=== PATIENT | male | born 1950 | race African-American/Black ===

== ENCOUNTER 2019-09-19 13:10 | Inpatient (IN) | payer MEDICARE, OTHER ==
[~2019-09-19] VITALS: Ht 172.7 cm; Wt 73.9 kg
--- NOTE | 2019-09-19 13:49 | Emergency Room Report ---
History of Present Illness General Chief Complaint: Generalized Weakness Source: Patient, Medical Record Present Illness HPI 68-year-old male history of hypertension, CABG, dementia, presents with generalized weakness, failure to care of himself, reduced appetite, dehydration , no aggravating leaving factors severity is moderate, constant symptoms have been ongoing for the past month acutely worsening over the past week, patient feels more short of breath and weaker, no fevers no chills no chest pain no nausea no vomiting no abdominal pain no diarrhea patient presents for evaluation Allergies: Coded Allergies: No Known Allergies (Unverified , 09/19/19) Patient History Past Medical History: see triage record Reviewed Nursing Documentation: PMH: Agreed; PSxH: Agreed Nursing Documentation-PMH Hx Hypertension: Yes - PVD Hx COPD: Yes - PNEUMONIA Review of Systems All Other Systems: negative except mentioned in HPI Physical Exam Vital Signs Date Time Temp Pulse Resp B/P (MAP) Pulse Ox O2 Delivery O2 Flow Rate FiO2 09/19/19 13:24 98.1 81 16 137/83 (101) 98 Room Air Sp02 EP Interpretation: reviewed, normal General Appearance: well appearing, no apparent distress, alert Head: normocephalic, atraumatic Eyes: bilateral eye PERRL, bilateral eye EOMI ENT: uvula midline, dry mucus membranes Neck: supple, thyroid normal, supple/symm/no masses Respiratory: lungs clear, no respiratory distress, no retraction, no accessory muscle use Cardiovascular #1: normal peripheral pulses, regular rate, rhythm, no edema, no gallop, no murmur Gastrointestinal: non tender, soft, no guarding, no rebound Musculoskeletal: normal inspection Neurologic: alert, oriented x3 Psychiatric: mood/affect normal Skin: no rash, warm/dry Medical Decision Making Diagnostic Impression: Primary Impression: Failure to thrive in adult Additional Impression: Dehydration ER Course [age]-year-old male presents with failure to thrive, dehydration, will evaluate for possible sepsis UTI. Patient will require admission and evaluation and possible placement Patient found to have elevations on EKG, no stemi criteria, Dr. Cabrera consulted reviewed EKG recommended that he get an echo, no stemi criteria, most likely old underlying disease Patient admitted to Dr. Benjamin for dehydration and failure to thrive. Laboratory Tests Test 09/19/19 13:39 09/19/19 13:59 Lactic Acid Level 1.10 mmol/L (0.4-2.0) White Blood Count 4.1 K/UL (4.8-10.8) L Red Blood Count 4.45 M/UL (4.70-6.10) L Hemoglobin 13.2 G/DL (14.2-18.0) L Hematocrit 39.3 % (42.0-52.0) L Mean Corpuscular Volume 88 FL (80-99) Mean Corpuscular Hemoglobin 29.6 PG (27.0-31.0) Mean Corpuscular Hemoglobin Concent 33.5 G/DL (32.0-36.0) Red Cell Distribution Width 11.8 % (11.6-14.8) Platelet Count 120 K/UL (150-450) L Mean Platelet Volume 9.9 FL (6.5-10.1) Neutrophils (%) (Auto) 54.4 % (45.0-75.0) Lymphocytes (%) (Auto) 32.4 % (20.0-45.0) Monocytes (%) (Auto) 12.2 % (1.0-10.0) H Eosinophils (%) (Auto) 0.3 % (0.0-3.0) Basophils (%) (Auto) 0.7 % (0.0-2.0) Prothrombin Time 10.9 SEC (9.30-11.50) Prothrombin Time INR 1.0 (0.9-1.1) PTT 27 SEC (23-33) Sodium Level 144 MMOL/L (136-145) Potassium Level 3.8 MMOL/L (3.5-5.1) Chloride Level 110 MMOL/L (98-107) H Carbon Dioxide Level 30 MMOL/L (21-32) Anion Gap 4 mmol/L (5-15) L Blood Urea Nitrogen 9 mg/dL (7-18) Creatinine 1.0 MG/DL (0.55-1.30) Estimate Glomerular Filtration Rate > 60 mL/min (>60) Glucose Level 99 MG/DL (74-106) Calcium Level 8.7 MG/DL (8.5-10.1) Phosphorus Level 3.1 MG/DL (2.5-4.9) Magnesium Level 1.9 MG/DL (1.8-2.4) Total Bilirubin 0.3 MG/DL (0.2-1.0) Aspartate Amino Transferase (AST) 19 U/L (15-37) Alanine Aminotransferase (ALT) 22 U/L (12-78) Alkaline Phosphatase 37 U/L (46-116) L Total Creatine Kinase 489 U/L (26-308) H Creatine Kinase MB 8.4 NG/ML (0.0-3.6) H Creatine Kinase MB Relative Index 1.7 Troponin I 0.018 ng/mL (0.000-0.056) Pro-B-Type Natriuretic Peptide 443 pg/mL (0-125) H Total Protein 6.6 G/DL (6.4-8.2) Albumin 3.3 G/DL (3.4-5.0) L Globulin 3.3 g/dL Albumin/Globulin Ratio 1.0 (1.0-2.7) Lipase 56 U/L (73-393) L EKG Diagnostic Results EKG Time: 14:44 EP Interpretation: NSR rate 62, qtc 466, elevated v2 v3, no stemi criteria, Left axis dev Rhythm Strip Diag. Results Rhythm Strip Time: 13:48 EP Interpretation: yes Rate: 79 Rhythm: NSR, no PVC's, no ectopy Chest X-Ray Diagnostic Results Chest X-Ray Diagnostic Results : Chest X-Ray Ordered: Yes # of Views/Limited/Complete: 1 View Indication: Shortness of Breath EP Interpretation: Yes Interpretation: no consolidation, no effusion, no pneumothorax, no acute cardiopulmonary disease Impression: No acute disease Electronically Signed by: Harshad Contreras MD Last Vital Signs Date Time Temp Pulse Resp B/P (MAP) Pulse Ox O2 Delivery O2 Flow Rate FiO2 09/19/19 13:24 98.1 81 16 137/83 (101) 98 Room Air Disposition: ADMITTED INPATIENT Condition: Stable Harshad Contreras MD Sep 19, 2019 13:49
--- NOTE | 2019-09-19 14:16 | Diagnostic Imaging Report ---
Indication: Shortness of breath Technique: One view of the chest Comparison: none Findings: Lungs and pleural spaces are clear. There are median sternotomy sutures. The heart size is normal. There is mild elevation of the left hemidiaphragm Impression: No acute process
[2019-09-19 14:23] VITALS: BP 127/78
[2019-09-19] MEDS ORDERED: ASPIR 8181 MG ORAL (14:39)
[2019-09-19] MEDS ORDERED: OLANZAPINE20 MG ORAL (14:39)
[2019-09-19] MEDS ORDERED: TEMAZEPAM30 MG ORAL (14:39)
[2019-09-19] MEDS ORDERED: FLURAZEPAM HCL30 MG ORAL (14:39)
[2019-09-19] MEDS ORDERED: RISPERDAL3 MG PO (14:39)
[2019-09-19] MEDS ORDERED: CLOTRIMAZOLE15 GM TOPIC (14:39)
[2019-09-19] MEDS ORDERED: VITAMIN D22000 UNIT PO (14:39)
[2019-09-19] MEDS ORDERED: DIVALPROEX SOD500 MG PO (14:39)
[2019-09-19] MEDS ORDERED: CLOPIDOGREL75 MG ORAL (14:39)
[2019-09-19] MEDS ORDERED: BENZTROPINE ME0.5 MG PO (14:39)
[2019-09-19 14:49] LABS: BASOPHILS % (AUTO) 0.7 % (0.0-2.0); EOSINOPHILS % (AUTO) 0.3 % (0.0-3.0); HEMATOCRIT 39.3 % (42.0-52.0); HEMOGLOBIN 13.2 G/DL (14.2-18.0); LYMPHOCYTES % (AUTO) 32.4 % (20.0-45.0); MEAN CORPUSCULAR VOLUME 88 FL (80-99); MONOCYTES % (AUTO) 12.2 % (1.0-10.0); NEUTROPHILS % (AUTO) 54.4 % (45.0-75.0); PLATELET COUNT 120 K/UL (150-450); RED BLOOD COUNT 4.45 M/UL (4.70-6.10); RED CELL DISTRIBUTION WIDTH 11.8 % (11.6-14.8); WHITE BLOOD COUNT 4.1 K/UL (4.8-10.8)
[2019-09-19 15:03] LABS: ANION GAP 4 mmol/L (5-15); BLOOD UREA NITROGEN 9 mg/dL (7-18); CALCIUM 8.7 MG/DL (8.5-10.1); CARBON DIOXIDE 30 MMOL/L (21-32); CHLORIDE 110 MMOL/L (98-107); POTASSIUM 3.8 MMOL/L (3.5-5.1); SODIUM 144 MMOL/L (136-145)
[2019-09-19] MEDS ORDERED: NITROSTAT0.3 MG SL (15:06)
[2019-09-19] MEDS ORDERED: ECONAZOLE NITRA15 GM TOP (15:06)
[2019-09-19] MEDS ORDERED: TACTINAL500 M1 PO (15:06)
[2019-09-19] MEDS ORDERED: NIZORAL 2% C1 APPLIC TOPIC (15:06)
[2019-09-19 15:22] LABS: ALANINE AMINOTRANSFERASE 22 U/L (12-78); ALBUMIN 3.3 G/DL (3.4-5.0); ALKALINE PHOSPHATASE 37 U/L (46-116); ASPARTATE AMINO TRANSFERASE 19 U/L (15-37); BILIRUBIN,TOTAL 0.3 MG/DL (0.2-1.0); CKMB 8.4 NG/ML (0.0-3.6); CREATINE KINASE 489 U/L (26-308); PHOSPHORUS 3.1 MG/DL (2.5-4.9)
[2019-09-19 15:30] VITALS: BP 89/65
[2019-09-19 16:30] VITALS: BP 109/58
--- NOTE | 2019-09-19 16:52 | Cardiac Electrophysiology PN ---
Subjective Subjective [id number] Objective Last 24 Hour Vital Signs Date Time Temp Pulse Resp B/P (MAP) Pulse Ox O2 Delivery O2 Flow Rate FiO2 09/19/19 14:24 72 22 Room Air 09/19/19 14:23 97.9 72 22 127/78 98 Room Air 09/19/19 13:24 98.1 81 16 137/83 (101) 98 Room Air Laboratory Tests Test 09/19/19 13:39 09/19/19 13:59 Lactic Acid Level 1.10 mmol/L (0.4-2.0) White Blood Count 4.1 K/UL (4.8-10.8) L Red Blood Count 4.45 M/UL (4.70-6.10) L Hemoglobin 13.2 G/DL (14.2-18.0) L Hematocrit 39.3 % (42.0-52.0) L Mean Corpuscular Volume 88 FL (80-99) Mean Corpuscular Hemoglobin 29.6 PG (27.0-31.0) Mean Corpuscular Hemoglobin Concent 33.5 G/DL (32.0-36.0) Red Cell Distribution Width 11.8 % (11.6-14.8) Platelet Count 120 K/UL (150-450) L Mean Platelet Volume 9.9 FL (6.5-10.1) Neutrophils (%) (Auto) 54.4 % (45.0-75.0) Lymphocytes (%) (Auto) 32.4 % (20.0-45.0) Monocytes (%) (Auto) 12.2 % (1.0-10.0) H Eosinophils (%) (Auto) 0.3 % (0.0-3.0) Basophils (%) (Auto) 0.7 % (0.0-2.0) Prothrombin Time 10.9 SEC (9.30-11.50) Prothromb Time International Ratio 1.0 (0.9-1.1) Activated Partial Thromboplast Time 27 SEC (23-33) Sodium Level 144 MMOL/L (136-145) Potassium Level 3.8 MMOL/L (3.5-5.1) Chloride Level 110 MMOL/L (98-107) H Carbon Dioxide Level 30 MMOL/L (21-32) Anion Gap 4 mmol/L (5-15) L Blood Urea Nitrogen 9 mg/dL (7-18) Creatinine 1.0 MG/DL (0.55-1.30) Estimat Glomerular Filtration Rate > 60 mL/min (>60) Glucose Level 99 MG/DL (74-106) Calcium Level 8.7 MG/DL (8.5-10.1) Phosphorus Level 3.1 MG/DL (2.5-4.9) Magnesium Level 1.9 MG/DL (1.8-2.4) Total Bilirubin 0.3 MG/DL (0.2-1.0) Aspartate Amino Transf (AST/SGOT) 19 U/L (15-37) Alanine Aminotransferase (ALT/SGPT) 22 U/L (12-78) Alkaline Phosphatase 37 U/L (46-116) L Total Creatine Kinase 489 U/L (26-308) H Creatine Kinase MB 8.4 NG/ML (0.0-3.6) H Creatine Kinase MB Relative Index 1.7 Troponin I 0.018 ng/mL (0.000-0.056) Pro-B-Type Natriuretic Peptide 443 pg/mL (0-125) H Total Protein 6.6 G/DL (6.4-8.2) Albumin 3.3 G/DL (3.4-5.0) L Globulin 3.3 g/dL Albumin/Globulin Ratio 1.0 (1.0-2.7) Lipase 56 U/L (73-393) L Jacques Cabrera MD Sep 19, 2019 16:52
[2019-09-19 17:30] VITALS: BP 150/76
--- NOTE | 2019-09-19 18:34 | NUR ---
NURSE NOTES: Pre admit patient to TELE, Rm 207-2 from ER. Received report from Gary HASSAN. Patient is A/O X4, able to make needs known, denies any pain at this time, breathing is even and unlabored, on room air. Vital signs taken t 98.2, BP 133/66, HR 70, RR 16, oxygen sat 100% on RA. Skin is intact and warm on touch. compliance monitor in place. IV on LH 20g is intact and patent. Will continue to monitor patient.
--- NOTE | 2019-09-19 19:44 | NUR ---
HAND-OFF: Report given to SONYA Butcher. Patient is in stable condition.
--- NOTE | 2019-09-19 19:50 | NUR ---
NURSE NOTES: Received report from Negar Mansfield RN. Patient in bed AAO X3-4 with no complaints of acute pain or discomfort at this time. Kept clean, dry, and comfortable in bed. Ambulates with minimal assistance to the bathroom. IV line intact and patent SL and placed on continuous cardiac monitoring per protocol. Safety precaution in place; siderails X2 up, call light within reach, bed in lowest position, brakes and alarm on at all times. Needs and wants anticipated and attended. Will continue plan of care and monitor for any changes noted.
[2019-09-19 20:00] VITALS: BP 111/61
[2019-09-19] MEDS: Metoprolol 25mg tab ORAL SCH (21:00)
[2019-09-19] MEDS: Atorvastatin 20mg tab ORAL SCH (21:07)
[2019-09-19] MEDS ORDERED: Nitroglycerin Subl 0.4mg tab SL PRN (22:00)
--- NOTE | 2019-09-19 23:15 | Consultation ---
DATE OF CONSULTATION: 09/19/2019 CARDIOLOGY CONSULTATION CONSULTING PHYSICIAN: Jacques Cabrera M.D. REFERRING PHYSICIAN: . REASON FOR CONSULTATION: Questionable ST-elevation myocardial infarction. HISTORY OF PRESENT ILLNESS: The patient is a 68-year-old gentleman with history of hypertension and coronary artery bypass graft as well as dementia, was brought to the emergency for generalized weakness and decreased appetite and dehydration. The patient did not have syncope and denies any chest pain or shortness of breath. In the emergency room, the patient's EKG was read by the computer and has ST elevation myocardial infarction and had some ST elevation in lead V1 through V3. Cardiology consultation was obtained for further evaluation and management. At the time of my evaluation, the patient is still in the emergency room. Denies any chest pain or palpitation or shortness of breath. The patient stated he does not have a regular cotton factor. REVIEW OF SYSTEMS: Review of systems was negative other than what is mentioned in history of present illness. PAST MEDICAL HISTORY: As mentioned above. FAMILY HISTORY: Noncontributory. SOCIAL HISTORY: He lives at retirement. Does not smoke or drink alcohol. PHYSICAL EXAMINATION: VITAL SIGNS: Show blood pressure of 127/78, pulse 72, respirations 18, and temperature is 98. HEAD AND NECK: Showed no JVD. LUNGS: Clear. CARDIOVASCULAR: Shows regular S1 and S2 with no gallop or murmur. ABDOMEN: Soft and nontender. Sternotomy scar is intact. EXTREMITIES: No pitting edema. LABORATORY AND DIAGNOSTIC DATA: His labs show white count of 4, hemoglobin of 13.2, hematocrit of 39, and platelet count of 120,000. Sodium 144, potassium 3.8, BUN of 9, creatinine of 1, and glucose of 99. Troponin is negative. CK is 489. ASSESSMENT/PLAN: 1. Coronary artery disease with history of coronary artery bypass graft. Even though the EKG is read as ST elevation, the patient is completely asymptomatic from cardiac standpoint. Troponin is negative. This could be old. I do not have any prior EKG to compare with. We will repeat the EKG and repeat the cardiac enzymes and get an echocardiogram for further evaluation. In the meantime, we will keep the patient on his cardiac medications, which includes aspirin and Plavix and add metoprolol and Lipitor to his medical regimen. 2. Hypertension. Again, add metoprolol to his medical regimen. 3. Psychiatric. The patient is on Risperdal and Cogentin. Thank you very much for allowing me to participate in the care of this patient. Please do not hesitate to contact me for any questions regarding my evaluation. Jacques Cabrera M.D. DR: DWAYNE JOB#: [id number] CC:
[2019-09-20] VITALS: BP 115/63
--- NOTE | 2019-09-20 03:00 | NUR ---
NURSE NOTES: Patient in bed asleep with no S/S of distress at this time. Will continue plan of care.
[2019-09-20 03:06] LABS: EOSINOPHILS % (AUTO) 0.6 % (0.0-3.0); HEMATOCRIT 35.4 % (42.0-52.0); HEMOGLOBIN 12.2 G/DL (14.2-18.0); LYMPHOCYTES % (AUTO) 45.4 % (20.0-45.0); MEAN CORPUSCULAR VOLUME 88 FL (80-99); MONOCYTES % (AUTO) 10.1 % (1.0-10.0); PLATELET COUNT 111 K/UL (150-450); RED BLOOD COUNT 4.03 M/UL (4.70-6.10); RED CELL DISTRIBUTION WIDTH 11.9 % (11.6-14.8); WHITE BLOOD COUNT 4.1 K/UL (4.8-10.8)
[2019-09-20 03:15] LABS: ANION GAP 3 mmol/L (5-15); BLOOD UREA NITROGEN 10 mg/dL (7-18); CARBON DIOXIDE 28 MMOL/L (21-32); CHLORIDE 113 MMOL/L (98-107); CREATININE 1.1 MG/DL (0.55-1.30); POTASSIUM 4.1 MMOL/L (3.5-5.1); SODIUM 144 MMOL/L (136-145)
[2019-09-20 03:58] LABS: CHOLESTEROL 110 MG/DL (< 200); HDL CHOLESTEROL 38 MG/DL (40-60); TRIGLYCERIDES 87 MG/DL (30-150)
[2019-09-20 04:00] VITALS: BP 120/64
--- NOTE | 2019-09-20 07:42 | NUR ---
HAND-OFF: Report given to Sophie Burgos RN. Patient in stable condition. Endorsed plan of care.
--- NOTE | 2019-09-20 07:43 | NUR ---
NURSE NOTES: Report received from SONYA Butcher. Patient shows no signs of distress, A+Ox3/4, denies pain/SOB. Respirations are even and unlabored on room air. IV site is intact and saline locked. Bed is at lowest position, brakes engaged, siderails x3, bed alarm on, and call light within reach. Pt is in stable condition at this time; will continue to monitor.
[2019-09-20 08:00] VITALS: BP 109/56
[2019-09-20] MEDS: Metoprolol 25mg tab ORAL SCH (08:35)
[2019-09-20] MEDS: Benztropine 1mg tab ORAL SCH ×2 (08:43→17:32)
[2019-09-20] MEDS: Acetaminophen 500mg (ES) tab ORAL SCH ×2 (08:44→17:31)
[2019-09-20] MEDS: Aspirin EC 81mg tab ORAL SCH (08:45)
[2019-09-20] MEDS: Depakote 500mg tab ORAL SCH ×2 (08:45→17:32)
[2019-09-20] MEDS ORDERED: Vitamin D 50,000 units cap ORAL SCH (09:00)
--- NOTE | 2019-09-20 10:03 | Cardiac Electrophysiology PN ---
Assessment/Plan Assessment/Plan 1. Coronary artery disease with history of coronary artery bypass graft. Even though the EKG is read as ST elevation, the patient is completely asymptomatic from cardiac standpoint. Troponin is negative. Repeat EKG unchanged. Echocardiogram pending. On Aspirin, Plavix, metoprolol and Lipitor 2. Hypertension. On metoprolol t 3. Psychiatric. On Risperdal and Cogentin. JA RN Subjective Subjective No CP or SOB. Baljinder down to 53 at night. Objective Last 24 Hour Vital Signs Date Time Temp Pulse Resp B/P (MAP) Pulse Ox O2 Delivery O2 Flow Rate FiO2 09/20/19 08:35 54 109/56 09/20/19 08:00 97.7 54 20 109/56 (73) 96 09/20/19 04:00 44 09/20/19 04:00 97.2 63 18 120/64 (82) 96 09/20/19 00:00 97.0 61 18 115/63 (80) 97 09/20/19 00:00 64 09/19/19 21:00 59 109/61 09/19/19 20:00 96.9 59 18 111/61 (78) 96 09/19/19 20:00 63 09/19/19 19:37 Room Air 09/19/19 17:50 97.9 70 19 150/76 99 Room Air 09/19/19 17:30 70 19 150/76 99 Room Air 09/19/19 16:30 68 18 109/58 100 Room Air 09/19/19 15:30 65 19 89/65 99 Room Air 09/19/19 14:24 72 22 Room Air 09/19/19 14:23 97.9 72 22 127/78 98 Room Air 09/19/19 13:24 98.1 81 16 137/83 (101) 98 Room Air Intake and Output 09/19/19 09/20/19 19:00 07:00 Intake Total 200 ml 120 ml Output Total 0 ml Balance 200 ml 120 ml Intake Oral 200 ml 120 ml Output Urine Total 0 ml # Voids 2 Laboratory Tests Test 09/19/19 13:39 09/19/19 13:59 09/19/19 18:35 09/20/19 02:56 Lactic Acid Level 1.10 mmol/L (0.4-2.0) White Blood Count 4.1 K/UL (4.8-10.8) L 4.1 K/UL (4.8-10.8) L Red Blood Count 4.45 M/UL (4.70-6.10) L 4.03 M/UL (4.70-6.10) L Hemoglobin 13.2 G/DL (14.2-18.0) L 12.2 G/DL (14.2-18.0) L Hematocrit 39.3 % (42.0-52.0) L 35.4 % (42.0-52.0) L Mean Corpuscular Volume 88 FL (80-99) 88 FL (80-99) Mean Corpuscular Hemoglobin 29.6 PG (27.0-31.0) 30.2 PG (27.0-31.0) Mean Corpuscular Hemoglobin Concent 33.5 G/DL (32.0-36.0) 34.4 G/DL (32.0-36.0) Red Cell Distribution Width 11.8 % (11.6-14.8) 11.9 % (11.6-14.8) Platelet Count 120 K/UL (150-450) L 111 K/UL (150-450) L Mean Platelet Volume 9.9 FL (6.5-10.1) 8.7 FL (6.5-10.1) Neutrophils (%) (Auto) 54.4 % (45.0-75.0) 43.0 % (45.0-75.0) L Lymphocytes (%) (Auto) 32.4 % (20.0-45.0) 45.4 % (20.0-45.0) H Monocytes (%) (Auto) 12.2 % (1.0-10.0) H 10.1 % (1.0-10.0) H Eosinophils (%) (Auto) 0.3 % (0.0-3.0) 0.6 % (0.0-3.0) Basophils (%) (Auto) 0.7 % (0.0-2.0) 1.0 % (0.0-2.0) Prothrombin Time 10.9 SEC (9.30-11.50) Prothromb Time International Ratio 1.0 (0.9-1.1) Activated Partial Thromboplast Time 27 SEC (23-33) Sodium Level 144 MMOL/L (136-145) 144 MMOL/L (136-145) Potassium Level 3.8 MMOL/L (3.5-5.1) 4.1 MMOL/L (3.5-5.1) Chloride Level 110 MMOL/L (98-107) H 113 MMOL/L (98-107) H Carbon Dioxide Level 30 MMOL/L (21-32) 28 MMOL/L (21-32) Anion Gap 4 mmol/L (5-15) L 3 mmol/L (5-15) L Blood Urea Nitrogen 9 mg/dL (7-18) 10 mg/dL (7-18) Creatinine 1.0 MG/DL (0.55-1.30) 1.1 MG/DL (0.55-1.30) Estimat Glomerular Filtration Rate > 60 mL/min (>60) > 60 mL/min (>60) Glucose Level 99 MG/DL (74-106) 95 MG/DL (74-106) Calcium Level 8.7 MG/DL (8.5-10.1) 8.0 MG/DL (8.5-10.1) L Phosphorus Level 3.1 MG/DL (2.5-4.9) Magnesium Level 1.9 MG/DL (1.8-2.4) Total Bilirubin 0.3 MG/DL (0.2-1.0) Aspartate Amino Transf (AST/SGOT) 19 U/L (15-37) Alanine Aminotransferase (ALT/SGPT) 22 U/L (12-78) Alkaline Phosphatase 37 U/L (46-116) L Total Creatine Kinase 489 U/L (26-308) H Creatine Kinase MB 8.4 NG/ML (0.0-3.6) H Creatine Kinase MB Relative Index 1.7 Troponin I 0.018 ng/mL (0.000-0.056) 0.035 ng/mL (0.000-0.056) 0.047 ng/mL (0.000-0.056) Pro-B-Type Natriuretic Peptide 443 pg/mL (0-125) H 761 pg/mL (0-125) H Total Protein 6.6 G/DL (6.4-8.2) Albumin 3.3 G/DL (3.4-5.0) L Globulin 3.3 g/dL Albumin/Globulin Ratio 1.0 (1.0-2.7) Lipase 56 U/L (73-393) L Triglycerides Level 87 MG/DL (30-150) Cholesterol Level 110 MG/DL (< 200) LDL Cholesterol 54 mg/dL (<100) HDL Cholesterol 38 MG/DL (40-60) L Cholesterol/HDL Ratio 2.9 (3.3-4.4) L Objective HEAD AND NECK: No JVD. LUNGS: Clear. CARDIOVASCULAR: Regular S1 and S2 with no gallop or murmur. ABDOMEN: Soft and nontender. Sternotomy scar is intact. EXTREMITIES: No pitting edema. Jacques Cabrera MD Sep 20, 2019 10:03
--- NOTE | 2019-09-20 10:06 | NUR ---
RD ASSESSMENT & RECOMMENDATIONS SEE CARE ACTIVITY FOR COMPLETE ASSESSMENT DAILY ESTIMATED NEEDS: Needs based on Cardiac 75kg 25-30 kcals/kg 0122-4270 total kcals 1-1.2 g protein/kg 75-90 g total protein 25-30 mL/kg 2208-5788 total fluid mLs NUTRITION DIAGNOSIS: Decrease sodium needs r/t cardiac history as evidenced by h/o HTN, CAD, currently w/ elev BNP (761). CURRENT DIET: Cardiac PO DIET RECOMMENDATIONS: LOW NA diet / soft easy chew ADDITIONAL RECOMMENDATIONS: 1) Obtain a standing weight 2) Adm w/ FTT-> monitor for continued good po intake 3) Snacks in b/w meals 4) Lipid panel
[2019-09-20 12:00] VITALS: BP 109/54
--- NOTE | 2019-09-20 15:00 | History and Physical Report ---
DATE OF ADMISSION: 09/19/2019 REASON FOR ADMISSION: Abnormal EKG, possible non-STEMI DE. HISTORY OF PRESENT ILLNESS: This is a 68-year-old male, presents with hypertension, failure to thrive, coronary artery bypass in the past with worsening dementia and generalized weakness. The patient apparently did not have any syncopal episode, but presented to the emergency room with an abnormal EKG. Cardiology on-call was called due to T-wave inversion. The patient is chest pain-free at this time, no shortness of breath. The patient is admitted for further care and management and further evaluation. The patient's findings reviewed and discussed. The patient's medications as well resumed. The patient has baseline dementia and is a fairly poor historian. The patient is on blood thinners including aspirin and Plavix, and does have dementia with psychosis. PAST MEDICAL HISTORY: As above. MEDICATIONS: Reviewed and reconciled. ALLERGIES: Reviewed and reconciled. SOCIAL HISTORY: The patient is at home, but it is unable to care for himself. Does not smoke or drink at this time. REVIEW OF SYSTEMS: Difficult to obtain due to the patient's present state. PHYSICAL EXAMINATION: GENERAL: A well-developed male, comfortable at present. VITAL SIGNS: Blood pressure 120/64, pulse 63, temperature 97.2, respirations 18, and sats 96%. HEENT: Negative. Extraocular movements are grossly intact. NECK: Supple. LUNGS: Moderate breath sounds. No rhonchi or wheezes. CARDIAC: S1, S2 noted. Bradycardia without murmurs, rubs, or gallops. ABDOMEN: Soft, nontender, nondistended. EXTREMITIES: No cyanosis, clubbing, or edema. NEUROLOGIC: Grossly nonfocal. LABORATORY DATA: Reviewed. White cell count 4.1, hematocrit 35, platelets of 111,000. Chemistry noted and reviewed, fairly negative. Troponins are all negative. BNP 76.1. IMPRESSION: 1. Abnormal EKG. 2. Coronary artery disease. 3. Coronary artery bypass. 4. Dementia with psychosis. 5. Protein-calorie malnutrition. RECOMMENDATIONS: 1. Supportive care. 2. Cardiology follow up and recommendations. 3. Monitor on telemetry. 4. Follow up troponins. 5. Follow up EKG and echocardiogram. 6. Stabilize and obtain PT evaluation and plan to discharge to the alf facility for rehabilitation . Eleno Benjamin M.D. DR: MANAS JOB#: [id number] CC:
[2019-09-20 16:00] VITALS: BP 118/60
--- NOTE | 2019-09-20 19:39 | NUR ---
HAND-OFF: Report given to SONYA Butcher. Pt is in stable condition; plan of care endorsed.
--- NOTE | 2019-09-20 19:45 | NUR ---
NURSE NOTES: Mitch Cabrera MD. regarding patient's episode of 5 beats of Vtach at 1700. Patient asymptomatic with no complaints of discomfort or pain. NNO at this time, will continue to monitor.
[2019-09-20 20:00] VITALS: BP 120/61
[2019-09-20] MEDS: Metoprolol Succinate XL 25mg tab ORAL SCH (20:19)
[2019-09-20] MEDS: Atorvastatin 20mg tab ORAL SCH (20:23)
[2019-09-20] MEDS ORDERED: ZyPREXA Zydis 10mg tab ORAL SCH (21:00)
[2019-09-20] MEDS ORDERED: Metoprolol 25mg tab ORAL SCH (21:00)
[2019-09-21] VITALS (7 sets, daily range): BP systolic 103–146; BP diastolic 54–67
--- NOTE | 2019-09-21 04:01 | Consultation ---
DATE OF CONSULTATION: 09/20/2019 CONSULTING PHYSICIAN: Adrien Velázquez M.D. HISTORY OF PRESENT ILLNESS: This is a 68-year-old male with a history of schizophrenia, coronary artery disease, failure to thrive, and hypertension, who has been admitted to the hospital due to abnormal EKG and altered mental status. During evaluation, the patient was unable to remember his medication and he was a poor historian. He knew the date as well as he is knowing he has been in the hospital. However, he has poor memory and is unable to provide any meaningful information. PAST PSYCHIATRIC HISTORY: Significant for schizophrenia. MEDICATIONS: He is on Zyprexa as well as risperidone and temazepam. PAST MEDICAL HISTORY: Significant for coronary artery disease and hypertension. ALLERGIES: No known drug allergies. SUBSTANCE ABUSE HISTORY: No known history of illicit drug use or alcohol. No toxicology was done in the ER. MENTAL STATUS EXAMINATION: The patient is alert and oriented times self, place, and situation. Mood is neutral. Affect was flat. Thought process, concrete. Thought content, no suicidal or homicidal ideations. He denied any auditory or visual hallucination. No delusions. Memory is impaired. Insight and judgment are impaired. ASSESSMENT: AXIS I: Schizophrenia. Dementia. AXIS II: Deferred. AXIS III: Coronary artery disease. Hypertension. AXIS IV: Low. AXIS V: 50. PLAN: 1. We will discontinue the Zyprexa. 2. Continue the risperidone. 3. Decrease the temazepam from 30 mg to 15 mg at bedtime. 4. Continue with the Cogentin 0.5 mg b.i.d. 5. Provide the patient with reality orientation and supportive therapy. Adrien Velázquez M.D. DR: HARVINDER JOB#: [id number] CC:
--- NOTE | 2019-09-21 06:22 | NUR ---
CASE MANAGEMENT:REVIEW 68 YR OLD MALE PRESENTED TO ER BY SISTER CC; GENERALIZED WEAKNESS. REFERRED BY DR KOO SI: FTT. DEHYDRATION 98.0 81 16 137/83 98% ON RA H/H-13.2/39.3 TCK+689 IS: 1L NS BOLUS X2 CXR BLOOD CX : TO TELEMETRY INTERQUAL CRITERIA MET
--- NOTE | 2019-09-21 07:41 | NUR ---
HAND-OFF: Report given to Isabel Hayes RN. Patient in bed with no S/S of distress. Endorsed plan of care.
--- NOTE | 2019-09-21 07:41 | NUR ---
NURSE NOTES: PATIENT RECEIVED FROM SONYA CABELLO. PATIENT AWAKE AND ALERT AND ABLE TO MAKE NEEDS KNOWN. IV SITE IS CLEAN DRY AND INTACT, SALINE LOCKED. NO SIGNS OF DISTRESS NOTED. BED IN THE LOW AND LOCKED POSITION WITH CALL LIGHT WITHIN REACH. WILL CONTINUE TO MONITOR PATIENT.
[2019-09-21] MEDS: Aspirin EC 81mg tab ORAL SCH (08:30)
[2019-09-21] MEDS: Benztropine 1mg tab ORAL SCH ×2 (08:30→17:06)
[2019-09-21] MEDS: Metoprolol Succinate XL 25mg tab ORAL SCH (08:33)
[2019-09-21] MEDS: Acetaminophen 500mg (ES) tab ORAL SCH ×2 (08:33→17:07)
[2019-09-21] MEDS: Depakote 500mg tab ORAL SCH ×2 (08:33→17:08)
--- NOTE | 2019-09-21 12:15 | Cardiac Electrophysiology PN ---
Assessment/Plan Assessment/Plan 1. Coronary artery disease with history of coronary artery bypass graft. Even though the EKG is read as ST elevation, the patient is completely asymptomatic from cardiac standpoint. Troponin is negative. Repeat EKG unchanged. Echo EF 40%. On Aspirin, Plavix, metoprolol change to Coreg and Lipitor 2. Ischemic CMP EF 40. Start Coreg, Lisinopri, Aldactone and Lasix 3. NSVT 5 beats. May benefit from EP Study in view of EF 40% and post MD CMP 4. Hypertension. 5. Psychiatric. On Risperdal and Cogentin. JA RN Subjective Subjective No CP or SOB. Had short run of nonsustained VT Objective Last 24 Hour Vital Signs Date Time Temp Pulse Resp B/P (MAP) Pulse Ox O2 Delivery O2 Flow Rate FiO2 09/21/19 08:59 Room Air 09/21/19 08:33 59 119/63 09/21/19 07:59 96.8 59 18 119/63 (81) 94 09/21/19 04:00 45 09/21/19 04:00 98.0 55 20 103/66 (78) 95 09/21/19 00:00 48 09/21/19 00:00 97.0 49 21 112/62 (79) 96 09/20/19 21:00 Room Air 09/20/19 20:19 50 120/61 09/20/19 20:00 98.4 50 18 120/61 (80) 96 09/20/19 20:00 57 09/20/19 16:00 48 09/20/19 16:00 97.5 45 20 118/60 (79) 97 Intake and Output 09/20/19 09/21/19 19:00 07:00 Intake Total 720 ml 240 ml Balance 720 ml 240 ml Intake Oral 720 ml 240 ml # Voids 3 2 Microbiology Date/Time Source Procedure Growth Status 09/19/19 14:15 Blood Blood Culture - Preliminary NO GROWTH AFTER 24 HOURS Resulted 09/19/19 13:59 Blood Blood Culture - Preliminary NO GROWTH AFTER 24 HOURS Resulted Objective HEAD AND NECK: No JVD. LUNGS: Clear. CARDIOVASCULAR: Regular S1 and S2 with no gallop or murmur. ABDOMEN: Soft and nontender. Sternotomy scar is intact. EXTREMITIES: No pitting edema. Jacques Cabrera MD Sep 21, 2019 12:15
--- NOTE | 2019-09-21 13:56 | Cardiology Report ---
APPROVED REPORT EKG Measurement Heart [id number] PA 124P67 [id number] Sinus bradycardia Left axis deviation Nonspecific intraventricular block Cannot rule out Septal infarct, age undetermined T wave abnormality, consider inferior ischemia T wave abnormality, consider anterolateral ischemia Abnormal ECG
--- NOTE | 2019-09-21 14:00 | Cardiology Report ---
APPROVED REPORT EKG Measurement Heart [id number] GA 118P83 [id number] Normal sinus rhythm Left anterior fascicular block Anteroseptal infarct, possibly acute T wave abnormality, consider lateral ischemia Abnormal ECG
--- NOTE | 2019-09-21 15:29 | NUR ---
P.T Note P.T evaluation completed. Pt is currently baseline independent in ADL/functional mobilities and gait/locomotion therefore no skilled P.T service is not needed at this time. Educated pt the importance of OOB activities VS bedrest during stay unless otherwise ordered. Pt verbalized understanding. DC P.T services. Thank you for this referral.
--- NOTE | 2019-09-21 17:30 | Progress Note ---
DATE: 09/21/2019 SUBJECTIVE: The patient is doing better. Calmer. Still is a poor historian. Minimally verbal. Compliant with medication. No behavior issues noted. MENTAL STATUS EXAMINATION: The patient is alert, oriented times self, place, and situation. Mood is neutral. Affect is flat. Thought process is concrete. Thought content, no suicidal or homicidal ideations. Positive for delusions. Insight and judgment is poor. ASSESSMENT: Schizophrenia, rule out dementia. PLAN: 1. We will continue the temazepam 15 at bedtime. 2. Risperidone 3 mg b.i.d. 3. Depakote 500 b.i.d. 4. Provide the patient reality orientation and supportive therapy. Adrien Velázquez M.D. DR: ADARSH JOB#: [id number] CC:
--- NOTE | 2019-09-21 19:35 | NUR ---
NURSE NOTES: Received pt and report from SONYA [place]. Observed pt resting in bed with both eyes open and watching television. Pt is A/Ox3. monitoring specialist is in placed, IV site intact, asymptomatic, and patent. Bed is in the lowest position and locked. Call light and bedside table within reach. No signs/symptoms of acute distress noted at this time. Will continue plan of care.
--- NOTE | 2019-09-21 19:43 | NUR ---
HAND-OFF: Report given to SONYA SARAH.
--- NOTE | 2019-09-21 20:44 | General Progress Note ---
Assessment/Plan Assessment/Plan: failure to thrive psychosis dementia cardiomyopathy abnormal ECG T wave inversions PLAN cards clearance optimize therapy o2 diet psych care monitor PT evaluation dc planning to snf Subjective Allergies: Coded Allergies: No Known Allergies (Unverified , 09/19/19) Subjective care noted confused psych and cards noted echo noted Objective Last 24 Hour Vital Signs Date Time Temp Pulse Resp B/P (MAP) Pulse Ox O2 Delivery O2 Flow Rate FiO2 09/21/19 16:00 97.7 54 18 142/65 (90) 96 09/21/19 16:00 61 09/21/19 12:00 97.3 54 18 112/54 (73) 94 09/21/19 12:00 47 09/21/19 08:59 Room Air 09/21/19 08:33 59 119/63 09/21/19 08:00 75 09/21/19 07:59 96.8 59 18 119/63 (81) 94 09/21/19 04:00 45 09/21/19 04:00 98.0 55 20 103/66 (78) 95 09/21/19 00:00 48 09/21/19 00:00 97.0 49 21 112/62 (79) 96 09/20/19 21:00 Room Air Intake and Output 09/20/19 09/21/19 19:00 07:00 Intake Total 720 ml 240 ml Balance 720 ml 240 ml Intake Oral 720 ml 240 ml # Voids 3 2 Labs Test 09/19/19 13:39 09/19/19 13:59 09/19/19 18:35 09/20/19 02:56 Lactic Acid Level 1.10 mmol/L (0.4-2.0) White Blood Count 4.1 K/UL (4.8-10.8) 4.1 K/UL (4.8-10.8) Red Blood Count 4.45 M/UL (4.70-6.10) 4.03 M/UL (4.70-6.10) Hemoglobin 13.2 G/DL (14.2-18.0) 12.2 G/DL (14.2-18.0) Hematocrit 39.3 % (42.0-52.0) 35.4 % (42.0-52.0) Mean Corpuscular Volume 88 FL (80-99) 88 FL (80-99) Mean Corpuscular Hemoglobin 29.6 PG (27.0-31.0) 30.2 PG (27.0-31.0) Mean Corpuscular Hemoglobin Concent 33.5 G/DL (32.0-36.0) 34.4 G/DL (32.0-36.0) Red Cell Distribution Width 11.8 % (11.6-14.8) 11.9 % (11.6-14.8) Platelet Count 120 K/UL (150-450) 111 K/UL (150-450) Mean Platelet Volume 9.9 FL (6.5-10.1) 8.7 FL (6.5-10.1) Neutrophils (%) (Auto) 54.4 % (45.0-75.0) 43.0 % (45.0-75.0) Lymphocytes (%) (Auto) 32.4 % (20.0-45.0) 45.4 % (20.0-45.0) Monocytes (%) (Auto) 12.2 % (1.0-10.0) 10.1 % (1.0-10.0) Eosinophils (%) (Auto) 0.3 % (0.0-3.0) 0.6 % (0.0-3.0) Basophils (%) (Auto) 0.7 % (0.0-2.0) 1.0 % (0.0-2.0) Prothrombin Time 10.9 SEC (9.30-11.50) Prothromb Time International Ratio 1.0 (0.9-1.1) Activated Partial Thromboplast Time 27 SEC (23-33) Sodium Level 144 MMOL/L (136-145) 144 MMOL/L (136-145) Potassium Level 3.8 MMOL/L (3.5-5.1) 4.1 MMOL/L (3.5-5.1) Chloride Level 110 MMOL/L (98-107) 113 MMOL/L (98-107) Carbon Dioxide Level 30 MMOL/L (21-32) 28 MMOL/L (21-32) Anion Gap 4 mmol/L (5-15) 3 mmol/L (5-15) Blood Urea Nitrogen 9 mg/dL (7-18) 10 mg/dL (7-18) Creatinine 1.0 MG/DL (0.55-1.30) 1.1 MG/DL (0.55-1.30) Estimat Glomerular Filtration Rate > 60 mL/min (>60) > 60 mL/min (>60) Glucose Level 99 MG/DL (74-106) 95 MG/DL (74-106) Calcium Level 8.7 MG/DL (8.5-10.1) 8.0 MG/DL (8.5-10.1) Phosphorus Level 3.1 MG/DL (2.5-4.9) Magnesium Level 1.9 MG/DL (1.8-2.4) Total Bilirubin 0.3 MG/DL (0.2-1.0) Aspartate Amino Transf (AST/SGOT) 19 U/L (15-37) Alanine Aminotransferase (ALT/SGPT) 22 U/L (12-78) Alkaline Phosphatase 37 U/L (46-116) Total Creatine Kinase 489 U/L (26-308) Creatine Kinase MB 8.4 NG/ML (0.0-3.6) Creatine Kinase MB Relative Index 1.7 Troponin I 0.018 ng/mL (0.000-0.056) 0.035 ng/mL (0.000-0.056) 0.047 ng/mL (0.000-0.056) Pro-B-Type Natriuretic Peptide 443 pg/mL (0-125) 761 pg/mL (0-125) Total Protein 6.6 G/DL (6.4-8.2) Albumin 3.3 G/DL (3.4-5.0) Globulin 3.3 g/dL Albumin/Globulin Ratio 1.0 (1.0-2.7) Lipase 56 U/L (73-393) Triglycerides Level 87 MG/DL (30-150) Cholesterol Level 110 MG/DL (< 200) LDL Cholesterol 54 mg/dL (<100) HDL Cholesterol 38 MG/DL (40-60) Cholesterol/HDL Ratio 2.9 (3.3-4.4) Height (Feet): 5 Height (Inches): 8.00 Weight (Pounds): 163 Objective WDWN NAD clear breath sounds bilaterally without rhonchi or wheeze [id number] without MRG NABS nontender no HSM no CCE nonfocal confused Eleno Benjamin MD Sep 21, 2019 20:44
[2019-09-21] MEDS: Atorvastatin 20mg tab ORAL SCH (21:37)
[2019-09-22] VITALS: BP 134/64
[2019-09-22 04:00] VITALS: BP 139/60
--- NOTE | 2019-09-22 07:36 | NUR ---
HAND-OFF: Report given to SONYA Cherry. Plan of care endorsed.
--- NOTE | 2019-09-22 07:57 | NUR ---
NURSE NOTES: Received patient from Star Balbuena. Patient is awake in bed eating breakfast. No complain of pain or discomfort at this time. Fall precautins in place. Call gómez within patients reach. will follow.
[2019-09-22 08:00] VITALS: BP 154/72
--- NOTE | 2019-09-22 08:49 | General Progress Note ---
Assessment/Plan Assessment/Plan: failure to thrive psychosis dementia cardiomyopathy abnormal ECG T wave inversions PLAN cards clearance optimize therapy o2 diet psych care monitor PT evaluation dc planning to snf ? in am impression, plan, and exam edited and reviewed in detail care discussed with RN Subjective Allergies: Coded Allergies: No Known Allergies (Unverified , 09/19/19) Subjective care noted confused but comfortable psych and cards noted reviewed care Objective Last 24 Hour Vital Signs Date Time Temp Pulse Resp B/P (MAP) Pulse Ox O2 Delivery O2 Flow Rate FiO2 09/22/19 08:00 97.5 59 18 154/72 (99) 98 09/22/19 04:00 98.1 63 17 139/60 (86) 98 09/22/19 04:00 57 09/22/19 00:00 46 09/22/19 00:00 97.8 52 18 134/64 (87) 97 09/21/19 21:43 65 146/67 09/21/19 21:00 Room Air 09/21/19 20:00 98.1 65 17 146/67 (93) 98 09/21/19 20:00 47 09/21/19 16:00 97.7 54 18 142/65 (90) 96 09/21/19 16:00 61 09/21/19 12:00 97.3 54 18 112/54 (73) 94 09/21/19 12:00 47 09/21/19 08:59 Room Air Intake and Output 09/21/19 09/22/19 18:59 06:59 Intake Total 500 ml Balance 500 ml Intake Oral 500 ml # Voids 2 2 Height (Feet): 5 Height (Inches): 8.00 Weight (Pounds): 163 Objective WDWN NAD clear breath sounds bilaterally without rhonchi or wheeze [id number] without MRG NABS nontender no HSM no CCE nonfocal confused Eleno Benjamin MD Sep 22, 2019 08:49
[2019-09-22] MEDS: Benztropine 1mg tab ORAL SCH ×2 (08:54→17:48)
[2019-09-22] MEDS: Spironolactone 25mg tab ORAL SCH (08:55)
[2019-09-22] MEDS: Aspirin EC 81mg tab ORAL SCH (08:55)
[2019-09-22] MEDS: Lisinopril 10mg tab ORAL SCH (08:55)
[2019-09-22] MEDS: Depakote 500mg tab ORAL SCH ×2 (08:55→17:48)
[2019-09-22] MEDS: Acetaminophen 500mg (ES) tab ORAL SCH ×2 (08:56→17:49)
[2019-09-22 12:00] VITALS: BP 115/74
--- NOTE | 2019-09-22 14:11 | Cardiac Electrophysiology PN ---
Assessment/Plan Assessment/Plan 1. Coronary artery disease with history of coronary artery bypass graft. Even though the EKG is read as ST elevation, the patient is completely asymptomatic from cardiac standpoint. Troponin is negative. Repeat EKG unchanged. Echo EF 40%. On Aspirin, Plavix, Coreg and Lipitor 2. Ischemic CMP EF 40.On Coreg, Lisinopril, Aldactone and Lasix 3. NSVT 5 beats. May benefit from EP Study in view of EF 40% and post [place] CMP Can be done as out patient. No Syncope 4. Hypertension. 5. Psychosis. On Risperdal and Cogentin. JA RN Subjective Subjective No CP or SOB. Had short run of nonsustained VT yesterday Objective Last 24 Hour Vital Signs Date Time Temp Pulse Resp B/P (MAP) Pulse Ox O2 Delivery O2 Flow Rate FiO2 09/22/19 09:26 97.5 09/22/19 08:58 59 154/72 09/22/19 08:55 154/72 09/22/19 08:00 97.5 59 18 154/72 (99) 98 09/22/19 08:00 54 09/22/19 04:00 98.1 63 17 139/60 (86) 98 09/22/19 04:00 57 09/22/19 00:00 46 09/22/19 00:00 97.8 52 18 134/64 (87) 97 09/21/19 21:43 65 146/67 09/21/19 21:00 Room Air 09/21/19 20:00 98.1 65 17 146/67 (93) 98 09/21/19 20:00 47 09/21/19 16:00 97.7 54 18 142/65 (90) 96 09/21/19 16:00 61 Intake and Output 09/21/19 09/22/19 19:00 07:00 Intake Total 500 ml Balance 500 ml Intake Oral 500 ml # Voids 2 2 Microbiology Date/Time Source Procedure Growth Status 09/19/19 14:15 Blood Blood Culture - Preliminary NO GROWTH AFTER 48 HOURS Resulted 09/19/19 17:45 Nasal Nares MRSA Culture - Final NO METHICILLIN RESISTANT STAPH AUREUS... Complete 09/19/19 17:45 Rectum - Final NO CARBAPENEM-RESISTANT ENTEROBACTERI... Complete 09/19/19 17:45 Rectum VRE Culture - Final NO VANCOMYCIN RESISTANT ENTEROCOCCUS ... Complete Objective HEAD AND NECK: No JVD. LUNGS: Clear. CARDIOVASCULAR: Regular S1 and S2 with no gallop or murmur. ABDOMEN: Soft and nontender. Sternotomy scar is intact. EXTREMITIES: No pitting edema. Jacques Cabrera MD Sep 22, 2019 14:11
--- NOTE | 2019-09-22 14:54 | NUR ---
NURSE NOTES: patient have discharge order to SNF, pt came from [facility] and [facility], Cheli JAIME was notified regarding placement to SNF, and according to YENI, pt can go to [facility] and Ayala from [facility] will call here. Addendum: 09/22/19 at 1513 by ELAINA SALEEM RN dr molina ordered to dc [facility] to [facility], call placed to [facility] to fax clinicals. Addendum: 09/22/19 at 1520 by ELAINA SALEEM RN follow up call made to [facility], and according to the staff that answered the call, nobody can review the clinicals today, will just have to wait until tomorrow, will notify dr Angulo. YENI notified. Addendum: 09/22/19 at 1546 by ELAINA SALEEM RN faxed clinicals to [facility].
[2019-09-22 16:00] VITALS: BP 118/64
--- NOTE | 2019-09-22 16:12 | NUR ---
NURSE NOTES: Dr. Benjamin made aware of discharge update that as per [facility] nobody is available to review patients clinicals and query at this time. we'll have to wait until tomorrow.
--- NOTE | 2019-09-22 19:35 | NUR ---
NURSE NOTES: Received pt and report from SONYA Cherry. Observed pt resting in bed with both eyes open and watching television. auto body painter is in placed, IV site intact, asymptomatic, and patent. Bed is in the lowest position and locked, call light and bedside table within reach. No signs/symptoms of acute distress noted at this time. Will continue plan of care.
--- NOTE | 2019-09-22 19:46 | NUR ---
HAND-OFF: Report given to Star Balbuena. Plan of care endorsed.
[2019-09-22 20:00] VITALS: BP 116/52
[2019-09-22] MEDS: Atorvastatin 20mg tab ORAL SCH (21:17)
[2019-09-23] VITALS: BP 114/54
--- NOTE | 2019-09-23 02:42 | NUR ---
NURSE NOTES: Pt is resting in bed with both eyes closed. No signs/symptoms of acute distress noted at this time. Will continue plan of care.
[2019-09-23 04:00] VITALS: BP 112/52
--- NOTE | 2019-09-23 07:23 | NUR ---
HAND-OFF: Report given to SONYA Del Real. Plan of care endorsed.
[2019-09-23 08:00] VITALS: BP 109/66
--- NOTE | 2019-09-23 08:04 | NUR ---
NURSE NOTES: Received report from SONYA Balbuena. Patient in bed resting, no active s/s cardiac, respiratory distress noticed at this time. Patient on room air, AOx3, SB with BBB, HR 58. IV on left hand 20G, asymptomatic, patent, intact. Bed in lowest position, side rails upx2, call light within reach, bed alarm on. Will continue to monitor.
[2019-09-23] MEDS: Depakote 500mg tab ORAL SCH ×2 (08:50→17:32)
[2019-09-23] MEDS: Acetaminophen 500mg (ES) tab ORAL SCH ×2 (08:51→17:32)
[2019-09-23] MEDS: Aspirin EC 81mg tab ORAL SCH (08:51)
[2019-09-23] MEDS: Benztropine 1mg tab ORAL SCH ×2 (08:57→17:32)
[2019-09-23] MEDS: Lisinopril 10mg tab ORAL SCH (09:00)
[2019-09-23] MEDS: Spironolactone 25mg tab ORAL SCH (09:00)
--- NOTE | 2019-09-23 10:04 | General Progress Note ---
Assessment/Plan Assessment/Plan: failure to thrive psychosis dementia cardiomyopathy abnormal ECG T wave inversions PLAN cards clearance noted optimize therapy o2 diet psych care for change monitor PT evaluation dc planning to snf once bed available impression, plan, and exam edited and reviewed in detail care discussed with RN Subjective Allergies: Coded Allergies: No Known Allergies (Unverified , 09/19/19) Subjective care noted confused but comfortable psych and cards noted reviewed care awaiting discharge Objective Last 24 Hour Vital Signs Date Time Temp Pulse Resp B/P (MAP) Pulse Ox O2 Delivery O2 Flow Rate FiO2 09/23/19 09:00 109/66 09/23/19 09:00 57 109/66 09/23/19 04:00 58 09/23/19 04:00 97.8 54 17 112/52 (72) 98 09/23/19 00:00 97.7 52 18 114/54 (74) 98 09/23/19 00:00 44 09/22/19 21:17 65 116/52 09/22/19 21:00 Room Air 09/22/19 20:00 97.6 65 17 116/52 (73) 98 09/22/19 20:00 60 09/22/19 18:19 98.0 09/22/19 16:00 98.0 57 18 118/64 (82) 99 09/22/19 16:00 57 09/22/19 12:00 97.3 53 18 115/74 (88) 99 09/22/19 12:00 57 Intake and Output 09/22/19 09/23/19 18:59 06:59 Intake Total 960 ml 230 ml Balance 960 ml 230 ml Intake Oral 960 ml 230 ml # Voids 5 1 Height (Feet): 5 Height (Inches): 8.00 Weight (Pounds): 163 Objective WDWN NAD clear breath sounds bilaterally without rhonchi or wheeze [id number] without MRG NABS nontender no HSM no CCE nonfocal confused Eleno Benjamin MD Sep 23, 2019 10:04
[2019-09-23 12:00] VITALS: BP 118/65
--- NOTE | 2019-09-23 12:59 | Cardiac Electrophysiology PN ---
Assessment/Plan Assessment/Plan 1. Coronary artery disease with history of CABG Even though the EKG is read as ST elevation, the patient is completely asymptomatic from cardiac standpoint. Troponin is negative. Repeat EKG unchanged. Echo EF 40%. On Aspirin, Plavix, Coreg and Lipitor 2. Ischemic CMP EF 40.On Coreg, Lisinopril, Aldactone and Lasix 3. NSVT 5 beats. Consider EP Study in view of EF 40% and post [place] CMP Can be done as out patient as No EP lab at [place]. No Syncope 4. Hypertension. 5. Psychosis. On Risperdal and Cogentin. JA RN Subjective Subjective No CP or SOB. No more VT overnight. Awaiting placement Objective Last 24 Hour Vital Signs Date Time Temp Pulse Resp B/P (MAP) Pulse Ox O2 Delivery O2 Flow Rate FiO2 09/23/19 12:00 97.2 56 20 118/65 (82) 97 09/23/19 09:00 Room Air 09/23/19 09:00 109/66 09/23/19 09:00 57 109/66 09/23/19 08:00 97.3 57 20 109/66 (80) 97 09/23/19 08:00 59 09/23/19 04:00 58 09/23/19 04:00 97.8 54 17 112/52 (72) 98 09/23/19 00:00 97.7 52 18 114/54 (74) 98 09/23/19 00:00 44 09/22/19 21:17 65 116/52 09/22/19 21:00 Room Air 09/22/19 20:00 97.6 65 17 116/52 (73) 98 09/22/19 20:00 60 09/22/19 18:19 98.0 09/22/19 16:00 98.0 57 18 118/64 (82) 99 09/22/19 16:00 57 Intake and Output 09/22/19 09/23/19 19:00 07:00 Intake Total 960 ml 230 ml Balance 960 ml 230 ml Intake Oral 960 ml 230 ml # Voids 5 1 Objective HEAD AND NECK: No JVD. LUNGS: Clear. CARDIOVASCULAR: Regular S1 and S2 with no gallop or murmur. ABDOMEN: Soft and nontender. Sternotomy scar is intact. EXTREMITIES: No pitting edema. Jacques Cabrera MD Sep 23, 2019 12:59
[2019-09-23 16:00] VITALS: BP 126/60
--- NOTE | 2019-09-23 19:21 | NUR ---
HAND-OFF: Report given to SONYA Tobar.
[2019-09-23 20:00] VITALS: BP 127/63
--- NOTE | 2019-09-23 20:00 | NUR ---
NURSE NOTES: RECEIVED PATIENT LYING IN BED, AWAKE, ALERT/ORIENTED X3, VERBALLY RESPONSIVE, DENIES PAIN. NO SIGNS AND SYMPTOMS OF ACUTE CARDIO RESPIRATORY DISTRESS/SHORTNESS OF BREATH, DENIES CHEST PAIN, NO PERIPHERAL EDEMA NOTED. ABDOMEN SOFT/NON DISTENDED/NON TENDER ON PALPATION, AUDIBLE BOWEL SOUNDS, NO REPORT OF N/V. ASSISTED WITH COMFORT CARE, TOLERATED WELL. ENCOURAGED PATIENT TO UTILIZE CALL LIGHT FOR ASSISTANCE, VERBALIZED UNDERSTANDING. SIDE RAILS UP X2/BED IN LOWEST POSITION FOR SAFETY. CONTINUE WITH CURRENT PLAN OF CARE. NAD.
--- NOTE | 2019-09-23 20:15 | NUR ---
NURSE NOTES: PATIENT WITH COMPLAINTS OF PAIN TO IV SITE/LEFT HAND; PLACED NEW IF TO LEFT FOREARM, GAUGE 20, TOLERATED WELL.
[2019-09-23] MEDS: Atorvastatin 20mg tab ORAL SCH (20:51)
--- NOTE | 2019-09-23 20:54 | NUR ---
NURSE NOTES: COREG HELD, PARAMETERS OUT OF RANGE (HR 52)-
[2019-09-24] VITALS: BP 129/64
[2019-09-24 04:00] VITALS: BP 131/66
--- NOTE | 2019-09-24 05:05 | NUR ---
NURSE NOTES: RESTING WELL, NAD.
--- NOTE | 2019-09-24 06:13 | NUR ---
NURSE NOTES: RESTED WELL, NO SIGNIFICANT CHANGE OF CONDITION NOTED THROUGHOUT THE NIGHT. SAFETY MAINTAINED. NAD.
--- NOTE | 2019-09-24 07:20 | NUR ---
NURSE NOTES: Received report from SONYA Tobar. Patient in chair resting, no active s/s cardiac, respiratory distress noticed at this time. Patient AOx3, informed to call staff prior to amb, verbalized understanding. Patient on room air, SR w/ BBB with HR 62. IV on left FA 20G, asymptomatic, patent, intact. Bed in lowest position, side rails upx2, call light within reach. Will continue to monitor.
--- NOTE | 2019-09-24 07:28 | NUR ---
HAND-OFF: Report given to SONYA LAROSE.
[2019-09-24 08:00] VITALS: BP 106/68
[2019-09-24] MEDS ORDERED: Milk of Magnesia 30ml Ud ORAL PRN (08:15)
[2019-09-24] MEDS: Depakote 500mg tab ORAL SCH (08:44)
[2019-09-24] MEDS: Acetaminophen 500mg (ES) tab ORAL SCH (08:44)
[2019-09-24] MEDS: Aspirin EC 81mg tab ORAL SCH (08:44)
[2019-09-24] MEDS: Spironolactone 25mg tab ORAL SCH (08:45)
[2019-09-24] MEDS: Benztropine 1mg tab ORAL SCH (08:45)
[2019-09-24] MEDS: Lisinopril 10mg tab ORAL SCH (08:45)
--- NOTE | 2019-09-24 09:34 | Cardiac Electrophysiology PN ---
Assessment/Plan Assessment/Plan 1. Coronary artery disease with history of CABG Even though the EKG is read as ST elevation, the patient is completely asymptomatic from cardiac standpoint. Troponin is negative. Repeat EKG unchanged. Echo EF 40%. On Aspirin, Plavix, Coreg and Lipitor 2. Ischemic CMP EF 40.On Coreg, Lisinopril, Aldactone and Lasix 3. NSVT 5 beats. EP Study in view of EF 40% and post [place] CMP can be done as out patient as No EP lab at [place]. No Syncope 4. Hypertension. 5. Psychosis. On Risperdal and Cogentin. JA RN and Dr Benjamin Subjective Subjective No CP or SOB. No more VT overnight. Awaiting placement today Objective Last 24 Hour Vital Signs Date Time Temp Pulse Resp B/P (MAP) Pulse Ox O2 Delivery O2 Flow Rate FiO2 09/24/19 08:45 68 110/68 09/24/19 08:45 110/68 09/24/19 08:00 98.5 68 20 106/68 (81) 97 09/24/19 04:00 97.2 62 19 131/66 (87) 98 09/24/19 04:00 62 09/24/19 00:00 97.1 54 19 129/64 (85) 97 09/24/19 00:00 54 09/23/19 21:00 Room Air 09/23/19 20:53 52 125/65 09/23/19 20:00 87 09/23/19 20:00 97.2 87 19 127/63 (84) 98 09/23/19 16:00 67 09/23/19 16:00 97.3 61 20 126/60 (82) 97 09/23/19 12:00 66 09/23/19 12:00 97.2 56 20 118/65 (82) 97 Intake and Output 09/23/19 09/24/19 19:00 07:00 Intake Total 720 ml 800 ml Balance 720 ml 800 ml Intake Oral 720 ml 800 ml # Voids 4 3 Objective HEAD AND NECK: No JVD. LUNGS: Clear. CARDIOVASCULAR: Regular S1 and S2 with no gallop or murmur. ABDOMEN: Soft and nontender. Sternotomy scar is intact. EXTREMITIES: No pitting edema. Jacques Cabrera MD Sep 24, 2019 09:34
--- NOTE | 2019-09-24 09:48 | NUR ---
DISCHARGE PLANNING FAXED CLINICALS TO [facility] T: [phone] F: [phone] AWAIT ACCEPTANCE
--- NOTE | 2019-09-24 10:25 | Cardiology Report ---
APPROVED REPORT EXAM: Two-dimensional and M-mode echocardiogram with Doppler and color Doppler. INDICATION Chest Pain M-Mode DIMENSIONS IVSd1.2 (0.7-1.1cm)Left Atrium (MM)5.0 (1.6-4.0cm) LVDd5.5 (3.5-5.6cm)Aortic Root3.3 (2.0-3.7cm) PWd1.3 (0.7-1.1cm)Aortic Cusp Exc.1.9 (1.5-2.0cm) LVDs3.6 (2.5-4.0cm) PWs1.9 cm Normal left ventricular chamber size. There is akinesis of distal segments, apex and apical septum. Left ventricular ejection fraction estimated to be 40 %. No evidence of left ventricular hypertrophy. Anterior Echo-free space, may be due to pericardial fat or effusion. Mild left atrial enlargement. Right cardiac chamber sizes are within normal limits. Focal aortic valve sclerosis with adequate cusp excursion. Thickened mitral valve leaflets with normal excursion. Mitral annulus and aortic root calcification. Pulmonic valve not well visualized. Normal tricuspid valve structure. IVC at normal size with physiologic collapse. A color flow and spectral Doppler study was performed and revealed: Mild mitral regurgitation. Mitral diastolic velocities suggest reduced left ventricular relaxation c/w mild LV diastolic dysfunction (Grade I ). Mild tricuspid regurgitation. Tricuspid systolic velocities suggests peak right ventricular systolic pressure of 28 mmHg. Pulmonic regurgitation present.
[2019-09-24 12:00] VITALS: BP 127/63
--- NOTE | 2019-09-24 12:23 | General Progress Note ---
Assessment/Plan Assessment/Plan: failure to thrive psychosis dementia cardiomyopathy abnormal ECG T wave inversions constipation PLAN cards clearance noted schedule for EP study optimize therapy o2 diet psych care for change monitor PT evaluation dc planning to snf today if able laxative PRN impression, plan, and exam edited and reviewed in detail care discussed with RN Subjective Allergies: Coded Allergies: No Known Allergies (Unverified , 09/19/19) Subjective care noted confused psych and cards noted will need to return for EP study notes constipation reviewed care awaiting discharge Objective Last 24 Hour Vital Signs Date Time Temp Pulse Resp B/P (MAP) Pulse Ox O2 Delivery O2 Flow Rate FiO2 09/24/19 09:00 Room Air 09/24/19 08:45 68 110/68 09/24/19 08:45 110/68 09/24/19 08:00 62 09/24/19 08:00 98.5 68 20 106/68 (81) 97 09/24/19 04:00 97.2 62 19 131/66 (87) 98 09/24/19 04:00 62 09/24/19 00:00 97.1 54 19 129/64 (85) 97 09/24/19 00:00 54 09/23/19 21:00 Room Air 09/23/19 20:53 52 125/65 09/23/19 20:00 87 09/23/19 20:00 97.2 87 19 127/63 (84) 98 09/23/19 16:00 67 09/23/19 16:00 97.3 61 20 126/60 (82) 97 Intake and Output 09/23/19 09/24/19 18:59 06:59 Intake Total 720 ml 660 ml Balance 720 ml 660 ml Intake Oral 720 ml 660 ml # Voids 4 3 Height (Feet): 5 Height (Inches): 8.00 Weight (Pounds): 163 Objective WDWN NAD clear breath sounds bilaterally without rhonchi or wheeze [id number] without MRG NABS nontender no HSM no CCE nonfocal confused Eleno Benjamin MD Sep 24, 2019 12:23
--- NOTE | 2019-09-24 12:37 | NUR ---
DISCHARGE PLAN PATIENT HAS BEEN ACCEPTED AT [facility] [place] [address] SKILL[place] T: [phone] FOR NURSE TO NURSE REPORT [facility] HAS BEEN ARRANGED FOR 1430 [employer] DEVEL[employer]
--- NOTE | 2019-09-24 13:59 | NUR ---
NURSE NOTES: Called [facility] [phone] to give nurse to nurse report made SONYA Pozo aware patient ETA 1430, per RN not ready for getting report , will call soon.
--- NOTE | 2019-09-24 14:22 | NUR ---
NURSE NOTES: Report given to SONYA Lyles, tele: [phone], made aware ETA 1430.
--- NOTE | 2019-09-24 16:07 | NUR ---
NURSE NOTES: Patient discharged to SNF, [facility], report given to SONAY Lyles. Patient ID band removed and placed in shredder, IV removed, monitor tech returned to manager monitoring. Patient discharged via ambulance, with all belongings in a stable condition. Patient educated for benefit and side effects of medication. Family member made aware of discharge.
--- NOTE | 2019-09-25 04:45 | Progress Note ---
DATE: 09/24/2019 SUBJECTIVE: The patient is stable. No behavior issues noted. Calm and cooperative. Awaiting placement. MENTAL STATUS EXAMINATION: The patient is alert and oriented times self, place, and situation. Mood is anxious. Affect is flat. Thought process is concrete. Thought content, no suicidal or homicidal ideation. ASSESSMENT: Schizophrenia. PLAN: 1. We will continue current medications. 2. Provide the patient with reality orientation and supportive therapy. Adrien Velázquez M.D. DR: BENTLEY JOB#: [id number] CC:
--- NOTE | 2019-09-25 08:47 | Discharge Summary ---
Discharge Summary Discharge Summary _ DATE OF ADMISSION: 09/19/2019 DATE OF DISCHARGE: 09/24/2019 DISCHARGED BY: Dr. Benjamin REASON FOR ADMISSION: 88 years old male with past medical history of COPD, hypertension, coronary artery disease, history of [place] and CABG, PVD with bilateral leg stents, dementia , presented to emergency department with complaint of generalized weakness, failure to care of himself, reduced appetite and dehydration. Patient felt more short of breath and weaker than before. Patient denied fever or chills. Patient denied chest pain. No nausea or vomiting. No abdominal pain or diarrhea. Upon evaluation vital signs were stable. Laboratory work-up revealed no leukocytosis, hemoglobin 13.2, hematocrit 39.3, platelet count 120. Lactic acid 1.1. Stable electrolytes and renal parameters. Glucose 99. Stable LFT. Albumin 3.3. Troponin 0.018. pro BNP 443. EKG revealed normal sinus rhythm with left anterior fascicular block, T wave abnormality consider lateral ischemia. Anteroseptal infarct, possibly acute. Chest x-ray revealed no acute cardiopulmonary pathology. Patient subsequently was admitted for further management. CONSULTANTS: stonemason Dr. Wilkinson psychiatrist [facility] COURSE: Patient admitted to monitored floor. Cardiology followed. Serial troponin were negative. Per stonemason, patient with coronary artery disease and history of CABG. Even though the EKG was read as ST elevation , patient was completely asymptomatic from cardiac standpoint. Serial troponin were negative. Repeated EKG was unchanged. Echocardiogram reviewed ejection fraction of 40% with akinesis of distal segments, apex and apical septum. Right ventricular systolic pressure of 28. Dual antiplatelet therapy with aspirin and Plavix as well as beta-pedro pablo and statin continued. Lipid panel was stable. Guideline directed medical therapy for systolic dysfunction provided with beta- pedro pablo , AUGUST inhibitor and diuretics. Volumes were closely monitored. Patient noted to have nonsustained ventricular tachycardia 5 beats. [employer]ist recommended to do EP studies in view of ejection fraction 40% and post [place] cardiomyopathy , which can be done as outpatient. No EP lab at this hospital. Patient not demonstrated any syncopal/presyncopal episodes. Lipid panel was stable. Pulse oximetry remained stable on room air. Patient was working with physical therapist. Fall precaution maintained. Supportive care provided. Bowel regimen instituted. Psychiatrist seen and evaluated patient. Per psychiatrist, patient had schizophrenia. Psychiatric medication regimen was optimized. Patient was provided reality orientation supportive therapy. Placement was arranged at [facility] for halfway care. Patient subsequently was transferred for further management. FINAL DIAGNOSES: Coronary artery disease with history of CABG Ischemic cardiomyopathy with ejection fraction 40% Nonsustained ventricular tachycardia Hypertension Schizophrenia Failure to thrive Dementia Constipation DISCHARGE MEDICATIONS: List of medication was sent to accepting facility. DISCHARGE INSTRUCTIONS: Patient was discharged to the halfway facility. Follow up with medical doctor at the facility. I have been assigned to dictate discharge summary for this account. I was not involved in the patient's management. Catalina Cramer NP Sep 25, 2019 08:47
== END 2019-09-24 16:21 | DRG 303 ==
LOC: EMR 14:14 → 2E 14:24 → EDBEDREQSVC 15:18 → EDBEDREQ 15:18
DX: I25.10 Atherosclerotic heart disease of native coronary artery without angina pectoris (principal); I47.2 Ventricular tachycardia; E46 Unspecified protein-calorie malnutrition; R62.7 Adult failure to thrive; R53.1 Weakness; R63.0 Anorexia; E86.0 Dehydration; I25.5 Ischemic cardiomyopathy; I10 Essential (primary) hypertension; Z95.1 Presence of aortocoronary bypass graft; F03.90 Unspecified dementia, unspecified severity, without behavioral disturbance, psychotic disturbance, mood disturbance, and anxiety; J44.9 Chronic obstructive pulmonary disease, unspecified; I25.2 Old myocardial infarction; I73.9 Peripheral vascular disease, unspecified; I44.4 Left anterior fascicular block; F20.9 Schizophrenia, unspecified; K59.00 Constipation, unspecified; Z79.02 Long term (current) use of antithrombotics/antiplatelets; Z79.82 Long term (current) use of aspirin; F29 Unspecified psychosis not due to a substance or known physiological condition
CPT/HCPCS: 36415; 71045; 80048; 80053; 80061; 82550; 82553; 83605; 83690; 83735; 83880; 84100; 84484; 85025; 85610; 85730; 87040; 87081; 93005; 93306; 96360; 96361; 99285; J7030